=== PATIENT | female | born 1985 | race Caucasian/White ===

== ENCOUNTER → 2018-03-14 10:13 | Outpatient (CLI) | payer OTHER, MEDICAID, SELFPAY ==
--- NOTE | 2018-03-14 10:41 | XR_ITS ---
XR foot wt bearing LT 3V HISTORY: Follow-up ORIF. No ITS.REASON: post op views ORDERING PHYSICIAN: Radha Acevedo DPM PATIENT AGE: 32 years COMPARISON: 02/27/2018 FINDINGS: Longitudinal wire remains in place stabilizing the oblique fracture of the proximal phalanx of the fifth toe. The pin however has slightly distracted distally. Previously the proximal tip of the pin was near the proximal articular surface of the proximal phalanx. Now the proximal tip of the pin is 6 to 7 mm distal to the proximal surface. It is uncertain from the AP view if the pin traverses both fracture fragments. There remains good alignment with no significant callus formation. IMPRESSION: Status post ORIF proximal phalanx fracture of the fifth toe. It does appear that pin has slightly distracted distally. There remains good alignment
== END ==
PROVIDERS: PCP Emergency Medicine; Visit Provider Podiatrist
DX: Z98.890 Other specified postprocedural states (principal)
CPT/HCPCS: 73630

== ENCOUNTER → 2018-03-26 10:24 | Outpatient (CLI) | payer OTHER, MEDICAID, SELFPAY ==
--- NOTE | 2018-03-26 10:25 | XR_ITS ---
XR foot wt bearing LT 3V HISTORY: Follow-up surgery/ORIF ITS.REASON: post-op ORDERING PHYSICIAN: Radha Acevedo DPM PATIENT AGE: 32 years COMPARISON: 03/14/2018 FINDINGS: Status post ORIF mid shaft fracture of the proximal phalanx of the fifth toe. K wire remains in place as previously described. Fracture line is less distinct consistent with healing. IMPRESSION: Healing fracture of the proximal phalanx of the fifth toe status post ORIF
== END ==
PROVIDERS: Visit Provider Podiatrist
DX: Z98.890 Other specified postprocedural states (principal)
CPT/HCPCS: 73630

== ENCOUNTER → 2021-08-05 11:07 | Outpatient (CLI) | payer OTHER, MEDICAID, SELFPAY | PROVIDERS: Visit Provider Nurse Practitioner | DX: Z20.822 Contact with and (suspected) exposure to COVID-19 (principal) | CPT/HCPCS: C9803; U0003; U0005 ==